=== PATIENT | male | born 1965 | race Caucasian/White ===

== ENCOUNTER → 2016-09-24 | Outpatient (CLI) | payer OTHER ==
[~2016-09-24] MED LIST: CENTRUM1 TA1 PO; CIPROFLOXACIN500 M2 PO; CLINDAMYCIN300 MG PO; DOXYCYCLINE HY100 M4 PO; FISH OIL500 MG PO; HYOSCYAMINE0.125 M4 SL; MASON NATURAL2000 IU PO; SEPTRA DS 800 M1 TAB PO; TRAMADOL 50MG T50 MG PO; VICTOZA6 MG/ML SC; VITAMIN B12100 MCG PO
--- NOTE | 2016-09-24 10:10 | RADIOLOGY REPORT PS360 ---
CHEST(2 VIEWS-NOT PORTABLE) HISTORY: COUGH ORDERING PHYSICIAN: Murray Cowan MD PATIENT AGE: 50 years COMPARISON: 03/03/2016 FINDINGS: The cardiomediastinal silhouette and pulmonary vascularity are within normal limits. The lungs are clear without infiltrates, suspicious nodules, or pleural effusions. No acute bony abnormalities. There are old left-sided rib fractures IMPRESSION: No acute finding
--- NOTE | 2016-09-24 16:23 | RADIOLOGY REPORT PS360 ---
CT ABD PELVIS W/ CONTRAST CLINICAL INDICATION: Lower abdominal pain ABDOMINAL PAIN ORDERING PHYSICIAN: Murray Cowan MD PATIENT AGE: 50 years COMPARISON: 12/25/2011 TECHNIQUE: Axial images obtained with sagittal and coronal reformats. PROCEDURE: Oral Contrast: Redicat IV Contrast: 75 mL is Isovue-370 . FINDINGS: The lung bases are clear. No focal liver lesion. There is a small hyperdensity along the posterior aspect of the fundus of the gallbladder on image #43 . This could be due to a small stone or polyp. Gallbladder ultrasound may be of further value. There is splenomegaly at 20 cm in AP dimension. The pancreas has an unremarkable appearance. There has been prior gastric bypass. No intestinal obstruction or free air. No renal calculi or hydronephrosis. The left adrenal glands enlarged at 2.2 x 1.5 cm not significant changed likely related to an adenoma. No intestinal obstruction or free air. Unremarkable appendix. There is a tiny umbilical hernia containing fat. There is a moderate amount of feces in the rectosigmoid region. No evidence of diverticulitis. No acute bony anomalies IMPRESSION: 1. No acute intra-abdominal or pelvic pathology. 2. Splenomegaly. 3. Small hyperdensity along the fundus of the gallbladder which could be due to small stone or polyp and may be better evaluated with ultrasound. 4. Left adrenal adenoma. 5. Small umbilical hernia containing fat. 6. Moderate amount of feces in the rectosigmoid region
== END ==
LOC: RAD 09:29
DX: R10.84 Generalized abdominal pain (principal); R05 Cough
CPT/HCPCS: Q9967

== ENCOUNTER 2017-01-07 08:37 | Emergency (ER) | payer OTHER ==
[~2017-01-07] VITALS: Ht 180.3 cm; Wt 113.4 kg
--- NOTE | 2017-01-07 09:18 | RADIOLOGY REPORT PS360 ---
CT HEAD W/O CONTRAST HISTORY: Headache following injury, head pain, contusion/abrasion HIT IN HEAD ORDERING PHYSICIAN: Elie King MD PATIENT AGE: 51 years COMPARISON: 10/21/2013 TECHNIQUE: Axial images obtained without contrast. Brain and bone windows reviewed. FINDINGS: No midline shift, mass effect, intracranial hemorrhage, hydrocephalus, or extra-axial fluid collection is evident. Mild soft tissue swelling is present in the subcutaneous region of the left frontal area. Incidental note is made of a 1 cm left frontal sinus osteoma. IMPRESSION: 1. No acute intracranial findings. 2. Soft tissue swelling left frontal scalp area. 3. Left frontal sinus osteoma
[2017-01-07] MEDS ORDERED: AUGMENTIN 875-1 EACH PO (10:00)
--- NOTE | 2017-01-07 10:00 | Emergency Room Report ---
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 N Clinical Suspician of Infection? N Mental Status: 1 - Regular (Normal Baseline) Sepsis Risk:Low Sepsis Risk Have you (or family members/close friends) recently traveled outside the [place]? N If Yes, where/when: Have you had exposure to infectious disease within the past month? TB? Other? Specify: Source patient, RN notes reviewed, RN/MD Exam Limitations no limitations Comment This is a 51-year-old male patient arriving to the emergency room with a head injury, sustained just half an hour ago. 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 Patient has any loss of consciousness, nausea, vomiting, blurred vision, seizure like activity, etc. ALLERGIES Coded Allergies: No Known Drug Allergies (NKDA) (01/07/17) Home Medications Active Scripts CLINDAMYCIN HCL (Clindamycin HCl) 300 MG PO TID #30 CAP Prov: 01/01/14 Reported Medications Tramadol Hcl (Tramadol 50MG) 50 MG PO CHOLECALCIFEROL (VITAMIN D3) (Vitamin D) 2,000 IU PO DAILY Cyanocobalamin (Vitamin B12) 100 MCG PO DAILY Multivitamin And Minerals2 (Centrum) 1 TAB PO DAILY SALMON OIL/OMEGA-3 FATTY ACIDS (Fish Oil 500 MG Softgel) 500 MG PO DAILY Liraglutide (Victoza 2-Oswaldo) 12 MG SC DAILY #6 History Medical History General Angina: No ME: No Hypertension? Yes Hyperlipidemia? Yes CHF? No COPD? No Asthma? No CVA? No Seizures? No Diabetes? Yes Insulin Dependent: No Insulin Pump: No Home FSBS? Yes GB Disease: No MRSA? No TB? No Cancer? No Immunization Hx Ped.Immunizations UTD Yes DT/Tetanus T Flu NEVER Pneumonia REFUSES Surgical Hx Previous Surgery?Y GASTRIC BYPASS 2008 Family History Family Hx Diabetes Yes CAD No Hypertension Yes Hyperlipidemia Yes Cancer Yes TB No Social History Smoking Hx Smoker: Never Smoker Tobacco: No Type N/A Are you/the child exposed to second-hand smoke: No Alcohol Alcohol: Yes Review of Systems All Other Systems Reviewed and Negative Skin lumps Psychiatric/Neurological headache Physical Exam Vital Signs Vital Signs Date Time Temp Pulse Resp B/P Pulse O2 O2 Flow FiO2 Ox Delivery Rate 01/07 1007 97.9 70 22 131/69 98 01/07 0943 70 22 131/69 98 01/07 0933 20 01/07 0842 97.9 76 18 151/96 98 General Appearance normal appearance, WD/WN, mild distress Eye Exam - bilateral eye normal exam, bilateral eye PERRL, bilateral eye EOMI Ear, Nose, Throat hearing grossly normal, normal ENT inspection Neck normal inspection, non-tender, supple, full range of motion Respiratory Status Yes: trachea midline, chest symmetrical, non tender chest. No: respiratory distress. Lung Sounds bilateral: normal breath sounds, lungs clear. 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 No Comment Upon reevaluation patient appears medically stable, in no acute distress. Patient advised to keep affected area covered with sterile dressing, changing daily, apply an ice pack locally, alternating motor Tylenol for pain control and take antibiotics as instructed. If any future medical concerns regarding to the seizure he will follow-up with PCP per discharge instructions. Results/Orders Current Medication Orders Sig/Earnest Start time Last Medication Dose Route Stop Time Status Admin Ondansetron HCl 0 .STK-MED ONE 01/07 931 DC .ROUTE Trimethoprim/ 0 .STK-MED ONE 01/07 931 DC Sulfamethoxazole PO Ketorolac 60 MG ONCE ONE 01/07 930 DC 01/07 Tromethamine IM 01/07 Ondansetron HCl 4 MG ONCE ONE 01/07 930 DC 01/07 IM 01/07 931 0932 Trimethoprim/ 1 TABLET ONCE ONE 01/07 930 DCr 01/07 Sulfamethoxazole PO 01/0732 Ketorolac 0 .STK-MED ONE 01/07 929 DC Tromethamine .ROUTE Diphtheria/Pertussis/ 0.5 ML ONCE ONE 01/07 900 DC 01/07 Tetanus Vacc IM 01/07 901 0849 Orders Procedure Date/time Status DIET-NOTHING BY MOUTH 01/[address] HEAD REQ 01/07 846 Complete XRAY/CT/US XRAY/CT/US CT head CT interpretation by discussed w/radiologist CT Results no intracranial hemorrhage, see radiologist's report Departure Departure Time of Disposition 957 Disposition DC Home or Self Care(routine) Clinical Impression Primary Impression: Head contusion Qualifiers: Encounter type: initial encounter Contusion of head detail: scalp Qualified Code: S00.03XA - Contusion of scalp, initial encounter Condition STABLE Patient Instructions DI for Contusion Additional Instructions Please alternate Motrin with Tylenol for pain/fever control, take the antibiotics as directed. Please follow up with director medical safety if not better in 2 days. Discharge Counseling Counseled pt/family regarding diagnosis, test results, medications/RX, home care, follow up needs Comment Please alternate Motrin with Tylenol for pain/fever control, take the antibiotics as directed. Please follow up with director medical safety if not better in 2 days. Prescriptions Current Visit Scripts Amoxicillin/Potassium Clav (Augmentin 875-125 Tablet) 1 EACH PO BID #14 TAB ED Critical Care Critical Care No at 0903
[2017-01-07 10:07] VITALS: BP 131/69
== END 2017-01-07 10:07 | disposition home or self-care (01) ==
LOC: ER 08:37
DX: S00.03XA Contusion of scalp, initial encounter (principal); Z23 Encounter for immunization; I10 Essential (primary) hypertension; W31.89XA Contact with other specified machinery, initial encounter
CPT/HCPCS: J2405